=== PATIENT | female | born 1955 | race Caucasian/White ===

== ENCOUNTER → 2018-04-03 | Outpatient (CLI) | payer MEDICARE, OTHER | END | disposition home or self-care (01) | LOC: PCVCCLINIC 12:55 | PROVIDERS: ATTEND Internal Medicine Cardiovascular Disease | DX: I10 Essential (primary) hypertension (principal); E78.00 Pure hypercholesterolemia, unspecified; R94.31 Abnormal electrocardiogram [ECG] [EKG]; M06.9 Rheumatoid arthritis, unspecified; E78.1 Pure hyperglyceridemia; R09.89 Other specified symptoms and signs involving the circulatory and respiratory systems; E03.9 Hypothyroidism, unspecified; Z87.891 Personal history of nicotine dependence; Z88.8 Allergy status to other drugs, medicaments and biological substances; Z82.49 Family history of ischemic heart disease and other diseases of the circulatory system; Z79.899 Other long term (current) drug therapy | CPT/HCPCS: 36415; 80061; 93005; G0463 ==

== ENCOUNTER → 2018-05-09 | Outpatient (CLI) | payer MEDICARE, OTHER ==
--- NOTE | 2018-05-09 15:07 | PCVCIMAG ---
APPROVED REPORT Indications Bruit Risk Factors Hypertension: Hyperlipidemia History of Smoking Doppler Spectral Velocity Analysis PSV / EDVPSV / EDV ECA (R) 97 / 12 cm/sECA (L) 81 / 10 cm/s dICA (R) 67 / 25 cm/sdICA (L) 55 / 23 cm/s Rea (R) 56 / 18 cm/smICA (L) 58 / 26 cm/s pICA (R) 77 / 14 cm/spICA (L) 42 / 18 cm/s Bulb (R) 41 / 13 cm/sBulb (L) 83 / 23 cm/s dCCA (R) 90 / 29 cm/sdCCA (L) 88 / 28 cm/s mCCA (R) 87 / 18 cm/smCCA (L) 92 / 21 cm/s Vert (R) 41 / 15 cm/sVert (L) 55 / 21 cm/s ICA/CCA 0.86ICA/CCA 0.66 Basic Measurements Blood Pressure: Pulses: Right Left RightLeft Brachial(Sitting) 126/88lvZq177/80mmHgTemporal Real Time B-Mode Imaging Vert. (R)AntegradeVert. (L)Antegrade Findings The right carotid bulb has minimal plaque. The right proximal internal carotid artery shows no significant stenosis. The right common carotid artery shows no significant stenosis. The right external carotid artery shows no significant stenosis. The left carotid bulb has mild plaque. The left proximal internal carotid artery shows no significant stenosis. The left common carotid artery shows no significant stenosis. The left external carotid artery shows no significant stenosis. Conclusion 1. No significant stenosis involving either carotid artery 2. Antegrade vertebral flow
--- NOTE | 2018-05-09 15:13 | PCVCIMAG ---
APPROVED REPORT Study performed: 05/09/2018 13:31:31 Exam: Stress Echocardiogram Indication: CAD , Cor Ca+ 261, Patient Location: Echo lab Stress Nurse: Melba Mireles RN Room #: 1 Ht: 5 ft 4 in HR: 88 bpm BP: 126/82 mmHg Rhythm: NSR Medical History Medical History: CAD non obstructive Cardiac Risk Factors: Hyperlipidemia, FHX of early onset CAD Previous Cardiac Procedures: none Pretest Chest Pain Characteristics: No chest pain Exercise History: Sedentary Procedure The patient underwent an Exercise Stress Test using the Martin Protocol. Blood pressure, heart rate, and EKG were monitored. An Echocardiogram was performed by medical technicians in four stages in quad fashion. At peak stress, four selected images were obtained and placed side by side with resting images for comparison. Stress Test Details Stress Test: Exercise stress testing was performed using a Martin protocol. HR Resting HR: 81 bpmMax Heart Rate (APMHR): 160 bpm Max HR Achieved: 166 bpmTarget HR (85% APMHR): 136 bpm % of APMHR: 103 Recovery HR: 106 bpm HR response to stress: Normal HR response to stress BP Resting BP: 126/82 mmHg Max BP: 188/88 mmHg Recovery BP: 156/88 mmHg BP response to stress: Normal blood pressure response to stress. ECG Resting ECG: Sinus Rhythm Stress ECG: Sinus Rhythm ST Change: Non-ischemic Arrhythmia: rare PVC Recovery ECG: Sinus Rhythm Recovery ST Change: Non-ischemic Recovery Arrhythmia: None Clinical Reason for Termination: Maximal effort Stress Symptoms: fatigue Exercise duration: 9 min 00 sec Highest Stage Achieved: Stage 3: 3.4 mph at 14% grade. Exercise capacity: 10.1 METs Overall Exercise Capacity for Age: Normal Scale: Sedentary Angina Score: None No complications. Stress ECG Conclusion The patient exercised according to the MARTIN protocol for9:00 mins; achieving a work level of 10.1METS. The resting heart rate of81 bpm michelle to a maximum heart rate of 166 bpm. This value represent 103% of the maximal, age-predicted heart rate. The resting blood pressure of 126/82 mmHg, michelle to a maximum blood pressure of 188/88 mmHg. The exercise test was stopped due to fatigue . Pre-Stress Echo The resting Echocardiogram showed normal left ventricular contractility with an estimated Ejection Fraction of about 55-60%. Normal wall motion in all segments on baseline images. Post-Stress Echo The stress Echocardiogram showed normal left ventricular contractility with an estimated Ejection Fraction of about 65-70%. Normal augmentation of wall motion in all segments on post stress images. Clinical No clinical or ECG evidence for ischemia. Conclusion Clinical Response: Non-ischemic Exercise Capacity: Average Stress ECG Response: Non-ischemic Stress Echo Images: Non-ischemic Normal stress echocardiogram with maximal exercise stress. No clinical, EKG or echocardiographic evidence for ischemia. No echocardiographic evidence for exercise induced ischemia. <Conclusion> Normal stress echocardiogram with maximal exercise stress. No clinical, EKG or echocardiographic evidence for ischemia. No echocardiographic evidence for exercise induced ischemia.
== END | disposition home or self-care (01) ==
LOC: PCVCIMAG 12:35
PROVIDERS: ATTEND Internal Medicine Cardiovascular Disease
DX: I65.23 Occlusion and stenosis of bilateral carotid arteries (principal); I10 Essential (primary) hypertension; R09.89 Other specified symptoms and signs involving the circulatory and respiratory systems; E78.00 Pure hypercholesterolemia, unspecified; E78.5 Hyperlipidemia, unspecified; R93.1 Abnormal findings on diagnostic imaging of heart and coronary circulation
CPT/HCPCS: 93325; 93351; 93880

== ENCOUNTER → 2018-11-08 | Outpatient (CLI) | payer MEDICARE, OTHER | END | disposition home or self-care (01) | LOC: PCVCCLINIC 13:36 | PROVIDERS: ATTEND Internal Medicine Cardiovascular Disease | DX: R93.1 Abnormal findings on diagnostic imaging of heart and coronary circulation (principal); I10 Essential (primary) hypertension; E78.00 Pure hypercholesterolemia, unspecified; E78.1 Pure hyperglyceridemia; R09.89 Other specified symptoms and signs involving the circulatory and respiratory systems; M06.9 Rheumatoid arthritis, unspecified; Z82.49 Family history of ischemic heart disease and other diseases of the circulatory system; Z88.1 Allergy status to other antibiotic agents | CPT/HCPCS: 36415; 80061; 93005; G0463 ==